=== PATIENT | male | born 1940 | race Caucasian/White ===

== ENCOUNTER → 2021-01-22 | Outpatient (CLI) | payer OTHER, BC ==
[~2021-01-22] VITALS: Ht 190.5 cm; Wt 86.2 kg
[~2021-01-22] MED LIST: ASA81BEC PO; CLINDAMYCIN 1%-60 GM TOP; FLOMAX0.4 MG PO; IBUPROFEN 600600 M1 PO; TRAZODONE HCL100 MG PO; VITAMIN C500 M2 PO; VITAMIN D325 MC1 PO
--- NOTE | 2021-01-24 14:07 | PATH ---
[facility] [address] [place] [address] PATHOLOGY RPT PROCEDURE Name: ASA TORRES Room #: REG [facility].Ladan.#: [id number] Admission: 01/22/21 Date of : 40 Discharge: Report #: [id number] Path Case #: [id number] [facility] Accession Number: [id number] . 01 Material submitted: . PART A: stomach - BIOPSY OF GASTRITIS PART B: colon - ASCENDING COLON POLYP X2. Modifiers: ascending . 01 Clinical history: . EGD, COLONOSCOPY . HX BARRETTS, HX OF POLYPS . 02 Diagnosis: A. Gastric mucosa, gastritis, rule out H. pylori, endoscopic biopsy: - Mild chronic gastritis with features of reactive gastropathy. - Negative for intestinal metaplasia or atrophy. - Negative for Helicobacter pylori (properly controlled immunohistochemical stain performed). . B. 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 - Negative for high-grade dysplasia. . (IUV:purchasing director; 01/24/2021) MBR 01/24/2021 1116 Local . 02 Electronically signed: . Gayle Larkin MD, Pathologist NPI- [id number] . 01 Gross description: . A. The specimen is received in formalin, labeled "Asayehuda Torres, biopsy of gastritis". Received are three segments of pale lanier tissue ranging in size from 0.3-0.5 cm in maximum dimensions. The specimen is submitted entirely in cassette A1. . B. The specimen is received in formalin, labeled "Asa Matuteor, polyp at ascending colon x2". Received are three segments of pale lanier tissue ranging in size from 0.3-0.4 cm in maximum dimensions. The specimen is submitted entirely in cassette B1. (CAA; 01/23/2021) QA/QA 01/23/2021 1214 Local . 02 Pathologist provided ICD-10: K29.50, D12.2 . 02 [place] [address] PATHOLOGY RPT PROCEDURE Name: OPTO MECHANICAL TECHNICIANLAILA HOPKINSNE Duane Room #: REG [facility]#: [id number] Admission: 01/22/21 Date of : 40 Discharge: Report #: [id number] Path Case #: [id number] [facility] . [id number], [id number], [id number] Specimen Comment: A courtesy copy of this report has been sent to [phone], [phone] Specimen Comment: [id number] Specimen Comment: Report sent to / DR JENSEN Performed at: [address] [place], [place] [id number] MD Ronaldo Perales MD Phone: [phone] Performed at: [address] [id number] MD Gayle Larkin MD Phone: [phone]
--- NOTE | 2021-01-26 14:04 | P ---
[facility] [place] [address] PROCEDURE REPORT Name: BETHANY BURNHAM Room #: REG RUY Toshia#: [id number] Admission: 01/22/21 Attend Phys: Ranjeet Duckworth Discharge: Date of : 40 Report #: [id number] THIS REPORT FOR: cc: Felix Weiss MD, John L. MD McElhinney, Christian C. MD ~ DATE OF SERVICE: 01/22/2021 PROCEDURE PERFORMED: Upper endoscopy with biopsies. HISTORY OF PRESENT ILLNESS: The patient is an 80-year-old male who presents today for an EGD and colonoscopy. Last upper endoscopy by my previous partner, Dr. Evans in 2011 showed a possible short segment of biopsies, however, at that time were negative for Blackmon's. He does have a history of colon polyps. He denies any symptoms of heartburn or dysphagia. No nausea or vomiting. Plan is for EGD and colonoscopy today. DESCRIPTION OF PROCEDURE: The risks and benefits of the procedure were explained to the patient, those risks including but not limited to bleeding, perforation and the risk of sedation. He understood these risks and gave informed consent. Sedation was given using propofol per anesthesia. Next, using a standard Olympus upper endoscope, the scope was placed in the patient's mouth and advanced under direct vision through the esophagus, stomach and into the second portion of the duodenum. The esophagus was normal throughout. The GE junction was normal. There was no evidence of esophagitis or Blackmon's esophagus. A mild gastritis was noted in the fundus and body as well as the antrum with several small erosions. No evidence of bleeding. Biopsies were obtained to rule out H. pylori. The pylorus was normal and patent. The duodenal bulb, first and second portion were all normal. The scope was then withdrawn and the procedure terminated. The patient tolerated the procedure well. IMPRESSION: 1. Gastritis with multiple small antral erosions. 2. Otherwise, normal upper endoscopy. RECOMMENDATIONS: 1. Await biopsy results. 2. Suspect gastritis secondary to aspirin. No evidence of bleeding at this time. The patient denies any abdominal pain, could consider PPI therapy in the future if symptoms change. 3. We will proceed with colonoscopy next today. [facility] [address] [place] [address] PROCEDURE REPORT Name: BETHANY BURNHAM [facility] #: [facility] [id number] Admission: 01/22/21 Attend Phys: Ranjeet Duckworth Discharge: Date of : 40 Report #: [id number] Thank you for allowing me to participate in his care. <ELECTRONICALLY SIGNED> By: Ranjeet Boothe MD 01/26/21 1404 1211 193 Ranjeet Boothe MD /nt
--- NOTE | 2021-01-26 14:04 | P ---
[facility] [place] [address] [address] [place] [address] PROCEDURE REPORT Name: BETHANY BURNHAM Room #: REG RUY RubalcavaLauraLadanLaura#: [id number] Admission: 01/22/21 Attend Phys: Ranjeet Duckworth Discharge: Date of : 40 Report #: [id number] THIS REPORT FOR: cc: Felix Weiss MD, John L. MD McElhinney, Christian C. MD ~ DATE OF SERVICE: 01/22/2021 PROCEDURE PERFORMED: Colonoscopy with biopsies. HISTORY OF PRESENT ILLNESS: The patient is an 80-year-old male with a history of colon polyps, here for routine followup. Denies any symptoms. Last colonoscopy with adenomatous polyp removed in 2014. No family history of colon cancer. DESCRIPTION OF PROCEDURE: The risks and benefits of the procedure were explained to the patient, those risks including but not limited to bleeding, perforation and the risk of sedation. He understood these risks and gave informed consent. Sedation was given using propofol per anesthesia. Next, a digital rectal exam was initially performed, which was normal. Next, using a standard Olympus colonoscope, the scope was placed in the patient's anus and advanced under direct vision to the cecum. The overall prep was good. Cecum and ileocecal valve were normal in appearance. In the ascending colon, two 3-4 mm sessile polyps are noted, both removed with cold forceps, otherwise normal. The transverse, descending and sigmoid colon were normal. The rectal mucosa was normal. On retroflexion, small nonbleeding internal hemorrhoids were noted. The scope was then withdrawn and the procedure terminated. The patient tolerated the procedure well. IMPRESSION: 1. Two small colonic polyps. 2. Small internal hemorrhoids. 3. Otherwise, normal colonoscopy. RECOMMENDATIONS: 1. Await biopsy results. 2. If polyps are adenomatous polyps consider repeat colonoscopy in 5 years. Thank you for allowing me to participate in his care. <ELECTRONICALLY SIGNED> By: Ranjeet Boothe MD 01/26/21 1404 1213 1934 Ranjeet Boothe MD /nt
== END | disposition home or self-care (01) ==
LOC: GI 08:37
PROVIDERS: ATTEND Specialist
DX: Z12.11 Encounter for screening for malignant neoplasm of colon (principal); Z86.010 Personal history of colon polyps; D12.2 Benign neoplasm of ascending colon; K64.8 Other hemorrhoids; K29.50 Unspecified chronic gastritis without bleeding; K31.9 Disease of stomach and duodenum, unspecified; G47.30 Sleep apnea, unspecified; Z98.890 Other specified postprocedural states; Z79.899 Other long term (current) drug therapy; Z87.891 Personal history of nicotine dependence; Z85.6 Personal history of leukemia
CPT/HCPCS: 62110; 62900